=== PATIENT | female | born 1950 | race Caucasian/White ===

== ENCOUNTER 2024-06-02 07:15 | Inpatient (IN) | payer MEDICARE, BC ==
[~2024-06-02] VITALS: Ht 167.6 cm; Wt 69.4 kg
[2024-06-02 08:42] LABS: INR 1.04 (0.91-1.10)
[2024-06-02] MEDS ORDERED: LIDOCAINE 2%-EPI 1:100,000 30 ML VIAL ONE (09:21)
[2024-06-02] MEDS ORDERED: dexaMETHasone SOD PHOSPHATE 2 ML ONE (09:21)
[2024-06-02] MEDS ORDERED: VANCOMYCIN 1 GM VIAL ONE (09:22)
[2024-06-02] MEDS ORDERED: OXYMETAZOLINE HCL NASAL SPRAY 30 ML BOTTLE NS ONE (09:22)
[2024-06-02] MEDS ORDERED: ACETAMINOPHEN 325 MG TABLET PO PRN ×2 (13:00→17:00)
[2024-06-02] MEDS ORDERED: IV NS 0.9% 1,000 ML BAG IV PRN (13:00)
[2024-06-02] MEDS ORDERED: HYDROMORPHONE 1 MG/1 ML DISP.SYRIN IV PRN ×2 (13:00)
[2024-06-02] MEDS ORDERED: ONDANSETRON HCL/PF 4 MG/2 ML VIAL IV PRN ×2 (13:00)
[2024-06-02] MEDS ORDERED: LEVO112T5 PO (13:09)
[2024-06-02] MEDS ORDERED: ICOS1CAP PO (13:09)
[2024-06-02] MEDS ORDERED: AZIL40TA PO (13:09)
[2024-06-02] MEDS: IV NS 0.9% 1,000 ML IV PRN (13:21)
[2024-06-02 13:54] VITALS: BP 127/54; TEMP 97.9
[2024-06-02 16:39] VITALS: BP 123/61; TEMP 98.2; O2SAT 96
[2024-06-02] MEDS ORDERED: ONDANSETRON HCL/PF 4 MG/2 ML VIAL IVP PRN (17:00)
[2024-06-02] MEDS ORDERED: MAGNESIUM HYDROXIDE 30 ML UDC PO PRN (17:00)
[2024-06-02] MEDS ORDERED: MAG HYDROX/AL HYDROX/SIMETH 30 ML UDC PO PRN (17:00)
[2024-06-02] MEDS ORDERED: Z GUARD REMEDY 4 OZ OINT TP PRN (17:00)
[2024-06-02 20:00] VITALS: BP 130/59; TEMP 98.3; O2SAT 97
[2024-06-02] MEDS: VANCOMYCIN 1 GM in IV D5W 250ml IV SCH (21:59)
[2024-06-03 06:36] LABS: BASOPHILS % (AUTO) 0.1 % (0.0-2.0); CALCIUM, SERUM 9.3 mg/dL (8.5-10.1); CARBON DIOXIDE 23 mmol/L (21-32); CHLORIDE 106 mmol/L (98-107); CREATININE 0.7 mg/dL (0.6-1.3); EOSINOPHILS % (AUTO) 0.1 % (0.0-6.0); GLUCOSE 107 mg/dL (74-106); HEMATOCRIT 35 % (33-45); HEMOGLOBIN 11.6 g/dL (11.5-14.8); LYMPHOCYTES # (AUTO) 1.7 K/uL (0.8-4.8); LYMPHOCYTES % (AUTO) 10.6 % (20.0-44.0); MEAN CORPUSCULAR HEMOGLOBIN 30 PG (26.0-33.0); MEAN CORPUSCULAR HGB CONC 34 g/dl (31.0-36.0); MEAN CORPUSCULAR VOLUME 89 fL (82-100); MONOCYTES % (AUTO) 6.3 % (2.0-12.0); NEUTROPHILS # (AUTO) 13.3 K/uL (1.8-8.9); NEUTROPHILS % (AUTO) 82.9 % (43.0-81.0); PLATELET COUNT (AUTO) 199 K/uL (150-450); RED BLOOD CELL COUNT(AUTO) 3.89 MIL/uL (4.0-5.2); RED CELL DISTRIBUTION WIDTH 13.6 % (11.5-15.0); SODIUM SERUM 140 mmol/L (136-145); UREA NITROGEN, BLOOD 15 mg/dL (7-18); WHITE BLOOD COUNT (AUTO) 16.1 K/uL (4.3-11.0)
[2024-06-03 06:39] LABS: CHOLESTEROL 223 mg/dL (<200); LDL 145 mg/dL (0-99); TRIGLYCERIDES 100 mg/dL (30-150)
[2024-06-03 06:53] LABS: HDL CHOLESTEROL 51 mg/dL (40-60)
[2024-06-03] MEDS: LEVOTHYROXINE SODIUM 112 MCG TABLET PO SCH (09:00)
[2024-06-03] MEDS ORDERED: LEVOTHYROXINE SODIUM 112 MCG TABLET PO SCH (09:00)
[2024-06-03] MEDS: POLYVINYL ALCOHOL 15 ML BOTTLE EACHEYE PRN (10:12)
[2024-06-03] MEDS: CHLORHEXIDINE GLUCONATE 15 ML UDC MM SCH (11:18)
== END 2024-06-03 14:56 | disposition home or self-care (01) | DRG 496 ==
LOC: DS 07:15 → MED 12:39
PROVIDERS: ADMIT Internal Medicine; ATTEND Internal Medicine
PROC: 09BR0ZZ Excision of Left Maxillary Sinus, Open Approach (ICD-10-PCS; principal; 2024-06-02)
PROC: 0N5R0ZZ Destruction of Maxilla, Open Approach (ICD-10-PCS; 2024-06-02)
PROC: 0NSR04Z Reposition Maxilla with Internal Fixation Device, Open Approach (ICD-10-PCS; 2024-06-02)
PROC: 0N5V0ZZ Destruction of Left Mandible, Open Approach (ICD-10-PCS; 2024-06-02)
PROC: 0NUV07Z Supplement Left Mandible with Autologous Tissue Substitute, Open Approach (ICD-10-PCS; 2024-06-02)
PROC: 0NUR07Z Supplement Maxilla with Autologous Tissue Substitute, Open Approach (ICD-10-PCS; 2024-06-02)
PROC: 0NUV0JZ Supplement Left Mandible with Synthetic Substitute, Open Approach (ICD-10-PCS; 2024-06-02)
DX: S02.40DK Maxillary fracture, left side, subsequent encounter for fracture with nonunion (principal); M87.9 Osteonecrosis, unspecified; S02.609A Fracture of mandible, unspecified, initial encounter for closed fracture; M27.2 Inflammatory conditions of jaws; Y92.9 Unspecified place or not applicable; X58.XXXD Exposure to other specified factors, subsequent encounter; I10 Essential (primary) hypertension; Z88.0 Allergy status to penicillin; X58.XXXA Exposure to other specified factors, initial encounter; D16.4 Benign neoplasm of bones of skull and face; J32.0 Chronic maxillary sinusitis; J32.9 Chronic sinusitis, unspecified
CPT/HCPCS: 36415; 80048-TC; 80061-TC; 85025-TC; 85610-TC; 85730-TC; 88305-TC; 88311-TC; 88312-TC; A4223; A4338; C1713; C1781; G0378; J0330; J1100; J2310; J2704; J3370; J3490; J7030; J7060

== ENCOUNTER 2024-10-05 06:22 | Inpatient (IN) | payer MEDICARE, BC ==
[~2024-10-05] VITALS: Ht 167.6 cm; Wt 72.1 kg
[~2024-10-05 06:22] MED LIST: AZIL40TA PO; ICOS1CAP PO; LEVO112T5 PO
[2024-10-05] MEDS ORDERED: dexaMETHasone SOD PHOSPHATE 2 ML ONE (06:50)
[2024-10-05] MEDS ORDERED: ANESTHESIA TRAY IN PYXIS 1 EA TRAY MC ONE (06:50)
[2024-10-05] MEDS ORDERED: LIDOCAINE 2%-EPI 1:100,000 30 ML VIAL ONE (06:50)
[2024-10-05] MEDS ORDERED: VANCOMYCIN 1 GM VIAL ONE (06:50)
[2024-10-05] MEDS ORDERED: FENTANYL PF 100MCG/2ML AMPUL ONE (07:16)
[2024-10-05] MEDS ORDERED: FENTANYL PF 250MCG/5ML AMPUL ONE (07:17)
[2024-10-05] MEDS ORDERED: ROCURONIUM BROMIDE 50 MG/5 ML ONE (07:19)
[2024-10-05] MEDS ORDERED: LABETALOL HCL IV 100MG VIAL ONE (07:38)
[2024-10-05] MEDS ORDERED: ONDANSETRON HCL/PF 4 MG/2 ML VIAL IV PRN (11:30)
[2024-10-05] MEDS ORDERED: HYDROMORPHONE INJ 2 MG/ML DISP.SYRIN IV PRN (11:30)
[2024-10-05] MEDS ORDERED: ACETAMINOPHEN 325 MG TABLET PO PRN (11:30)
[2024-10-05] MEDS: IV NS 0.9% 1,000 ML IV PRN (11:48)
[2024-10-05] MEDS ORDERED: LOSA50TA39 PO (13:57)
[2024-10-05] MEDS ORDERED: Medication Not On Formulary EA (Icosapent Ethyl (Vascepa) 2 GM) PO SCH (17:00)
[2024-10-05] MEDS: VANCOMYCIN 1 GM in IV D5W 250ml IV SCH (18:17)
[2024-10-05 20:00] VITALS: BP 118/64; TEMP 97.7; O2SAT 96
[2024-10-06] MEDS: LEVOTHYROXINE SODIUM 112 MCG TABLET PO SCH (07:44)
[2024-10-06 08:00] VITALS: BP 134/66; TEMP 97.6; O2SAT 99
[2024-10-06 08:01] VITALS: BP 134/66
[2024-10-06] MEDS: LOSARTAN POTASSIUM 50 MG TABLET PO SCH (08:01)
== END 2024-10-06 10:51 | disposition home or self-care (01) | DRG 908 ==
LOC: DS 06:22 → MED 09:19
PROVIDERS: ADMIT Internal Medicine; ATTEND Internal Medicine
PROC: 0N5T0ZZ Destruction of Right Mandible, Open Approach (ICD-10-PCS; 2024-10-05)
PROC: 0WB30ZZ Excision of Oral Cavity and Throat, Open Approach (ICD-10-PCS; 2024-10-05)
PROC: 0NBV0ZZ Excision of Left Mandible, Open Approach (ICD-10-PCS; 2024-10-05)
PROC: 0NPW04Z Removal of Internal Fixation Device from Facial Bone, Open Approach (ICD-10-PCS; 2024-10-05)
PROC: 0N5R0ZZ Destruction of Maxilla, Open Approach (ICD-10-PCS; principal; 2024-10-05 07:30)
DX: T86.831 Bone graft failure (principal); S02.609K Fracture of mandible, unspecified, subsequent encounter for fracture with nonunion; T84.59XA Infection and inflammatory reaction due to other internal joint prosthesis, initial encounter; Y92.009 Unspecified place in unspecified non-institutional (private) residence as the place of occurrence of the external cause; Y83.8 Other surgical procedures as the cause of abnormal reaction of the patient, or of later complication, without mention of misadventure at the time of the procedure; Z79.899 Other long term (current) drug therapy; Z98.890 Other specified postprocedural states; I11.0 Hypertensive heart disease with heart failure; I50.9 Heart failure, unspecified; E78.5 Hyperlipidemia, unspecified; C43.9 Malignant melanoma of skin, unspecified; C73 Malignant neoplasm of thyroid gland; R73.03 Prediabetes; Z88.0 Allergy status to penicillin; X58.XXXD Exposure to other specified factors, subsequent encounter; Y83.2 Surgical operation with anastomosis, bypass or graft as the cause of abnormal reaction of the patient, or of later complication, without mention of misadventure at the time of the procedure; M27.2 Inflammatory conditions of jaws; D16.5 Benign neoplasm of lower jaw bone
CPT/HCPCS: 88300-TC; 88305-TC; 88311-TC; A4223; A4338; C1713; G0378; J0461; J0690; J1100; J2704; J3010; J3370; J3490; J7030; J7060